=== PATIENT | male | born 1990 | race Caucasian/White ===

== ENCOUNTER 2022-11-21 19:41 | Emergency (ER) | payer SELFPAY ==
[~2022-11-21] VITALS: Ht 172.7 cm; Wt 82.0 kg
[2022-11-21] MEDS ORDERED: ACETAMINOPHEN 325MG TABLET PO ONE (21:15)
[2022-11-21] MEDS ORDERED: TETANUS, DIPHTHERIA, PERTUSSIS VAC/PF 0.5ML (>10YR OLD) IM ONE (22:15)
[2022-11-21 22:53] VITALS: BP 110/65
== END 2022-11-21 22:55 | disposition home or self-care (01) ==
LOC: ER 19:41
DX: S60.512A Abrasion of left hand, initial encounter (principal); S40.811A Abrasion of right upper arm, initial encounter; S80.811A Abrasion, right lower leg, initial encounter; V29.99XA Rider (driver) (passenger) of other motorcycle injured in unspecified traffic accident, initial encounter; Y93.89 Activity, other specified; Y92.89 Other specified places as the place of occurrence of the external cause; Y99.8 Other external cause status
CPT/HCPCS: 73090; 73110; 73130; 73552; 90471; 90715; 99284